=== PATIENT | female | born 1955 | race Caucasian/White ===

== ENCOUNTER 2018-05-25 13:46 | Inpatient (IN) | payer OTHER ==
[~2018-05-25] VITALS: Ht 175.3 cm; Wt 73.0 kg
[~2018-05-25 13:46] MED LIST: PROVENTIL HFA6.7 GM IH
== END 2018-05-28 14:56 | disposition home or self-care (01) | DRG 742 ==
LOC: OB/GYN 05-26 07:00 → O/R 05-26 09:55 → OB/GYN 05-26 12:04 → SURG 05-26 18:49 → OB/GYN 05-26 20:08
PROVIDERS: Obstetrics & Gynecology; Surgery; Urology
PROC: 0DNN4ZZ Release Sigmoid Colon, Percutaneous Endoscopic Approach (ICD-10-PCS; 2018-05-26)
PROC: 0DN84ZZ Release Small Intestine, Percutaneous Endoscopic Approach (ICD-10-PCS; 2018-05-26)
PROC: 0DQB4ZZ Repair Ileum, Percutaneous Endoscopic Approach (ICD-10-PCS; 2018-05-26)
PROC: 0TQB4ZZ Repair Bladder, Percutaneous Endoscopic Approach (ICD-10-PCS; 2018-05-26)
PROC: 0T788DZ Dilation of Bilateral Ureters with Intraluminal Device, Via Natural or Artificial Opening Endoscopic (ICD-10-PCS; 2018-05-26)
PROC: 3E0F7GC Introduction of Other Therapeutic Substance into Respiratory Tract, Via Natural or Artificial Opening (ICD-10-PCS; 2018-05-26)
PROC: 0UT9FZZ Resection of Uterus, Via Natural or Artificial Opening With Percutaneous Endoscopic Assistance (ICD-10-PCS; principal; 2018-05-26 07:00)
PROC: 0UT2FZZ Resection of Bilateral Ovaries, Via Natural or Artificial Opening With Percutaneous Endoscopic Assistance (ICD-10-PCS; 2018-05-26 07:00)
PROC: 0UT7FZZ Resection of Bilateral Fallopian Tubes, Via Natural or Artificial Opening With Percutaneous Endoscopic Assistance (ICD-10-PCS; 2018-05-26 07:00)
DX: N84.0 Polyp of corpus uteri (principal); K91.72 Accidental puncture and laceration of a digestive system organ or structure during other procedure; N99.72 Accidental puncture and laceration of a genitourinary system organ or structure during other procedure; N83.8 Other noninflammatory disorders of ovary, fallopian tube and broad ligament; N95.8 Other specified menopausal and perimenopausal disorders; N73.6 Female pelvic peritoneal adhesions (postinfective); G89.18 Other acute postprocedural pain; J45.998 Other asthma

== ENCOUNTER 2019-07-08 07:11 | Emergency (ER) | payer OTHER ==
[~2019-07-08] VITALS: Ht 167.6 cm; Wt 68.9 kg
== END 2019-07-08 16:07 | disposition home or self-care (01) ==
LOC: ER 07:11
DX: R10.84 Generalized abdominal pain (principal)

== ENCOUNTER 2019-08-11 05:30 | Day surgery (SDC) | payer OTHER | END 2019-08-11 10:40 | disposition home or self-care (01) | LOC: AMB-ENDOS 05:30 → ADM 15:00 → AMB-ENDOS 15:00 | DX: D12.8 Benign neoplasm of rectum (principal) ==